=== PATIENT | female | born 1950 | race Two or more races ===

== ENCOUNTER 2021-08-07 11:58 | Emergency (ER) | payer OTHER ==
[~2021-08-07] VITALS: Ht 160 cm; Wt 49.9 kg
[2021-08-07] MEDS ORDERED: URSO250 MG PO (12:26)
[2021-08-07] MEDS ORDERED: LUTEIN20 MG PO (12:27)
[2021-08-07] MEDS ORDERED: NORVASC2.5 MG PO (12:27)
[2021-08-07] MEDS ORDERED: DICLOFENAC POTA50 MG PO (17:46)
[2021-08-07] MEDS ORDERED: SYMBICORT 16010.2 GM IH (17:46)
[2021-08-07] MEDS ORDERED: MUCINEX DM ER1 EAC1 PO (17:46)
[2021-08-07] MEDS ORDERED: PEPCID AC20 MG PO (17:46)
== END 2021-08-07 17:55 | disposition home or self-care (01) ==
LOC: ER 11:58
DX: U07.1 COVID-19 (principal); B96.0 Mycoplasma pneumoniae [M. pneumoniae] as the cause of diseases classified elsewhere; B34.9 Viral infection, unspecified

== ENCOUNTER 2023-01-05 13:03 | Emergency (ER) | payer OTHER ==
[~2023-01-05] VITALS: Ht 162.6 cm; Wt 49.9 kg
[~2023-01-05 13:03] MED LIST: DICLOFENAC POTA50 MG PO; LUTEIN20 MG PO; MUCINEX DM ER1 EAC1 PO; NORVASC2.5 MG PO; PEPCID AC20 MG PO; SYMBICORT 16010.2 GM IH; URSO250 MG PO
== END 2023-01-05 19:45 | disposition home or self-care (01) ==
LOC: ER 13:03
DX: S70.01XA Contusion of right hip, initial encounter (principal); W18.30XA Fall on same level, unspecified, initial encounter; Y93.9 Activity, unspecified; Y92.9 Unspecified place or not applicable; Y99.9 Unspecified external cause status